=== PATIENT | male | born 1980 | race American Indian/Alaskan Native ===

== ENCOUNTER 2020-07-02 12:55 | Inpatient (IN) | payer OTHER, SELFPAY ==
[2020-07-02] MEDS ORDERED: IBUPROFEN 800 MG TAB PO ONE (16:06)
--- NOTE | 2020-07-02 16:06 | Event Note ---
ED Screening Note Date of service: 07/02/20 Time: 16:02 ED Screening Note: This is a 39-year-old male with no prior medical history presents the ED complaining right-sided chest pain Pain in lower back pain all on the right side. Patient states he has been getting over a cold but today he was coughing and was coughing up blood. Denies no recent sick contact This initial assessment/diagnostic orders/clinical plan/treatment(s) is/are subject to change based on patients health status, clinical progression and re- assessment by fellow clinical providers in the ED. Further treatment and workup at subsequent clinical providers discretion. Patient/guardian urged not to elope from the ED as their condition may be serious if not clinically assessed and managed. Initial orders include: Tylenol ordered for pain EKG, chest x-ray
--- NOTE | 2020-07-02 17:07 | XRay Report ---
CHEST 2 VIEWS INDICATION / CLINICAL INFORMATION: cp. COMPARISON: None available. FINDINGS: SUPPORT DEVICES: None. HEART / MEDIASTINUM: No significant abnormality. LUNGS / PLEURA: No significant pulmonary or pleural abnormality. .No pneumothorax. ADDITIONAL FINDINGS: No significant additional findings. IMPRESSION: 1. No acute findings. Signer Name: Harlan Freitas MD Signed: 07/02/2020 5:03 PM Workstation Name: [id number]
[2020-07-02] MEDS ORDERED: IBUPROFEN 800 MG TAB ONE (18:14)
[2020-07-02] MEDS ORDERED: HYDROcodone/ACETAMINOPHEN 10-325MG TAB PO ONE (19:16)
[2020-07-02] MEDS ORDERED: ONDANSETRON 4 MG ODT TAB PO ONE (19:50)
--- NOTE | 2020-07-02 19:50 | Emergency Department Report ---
ED Abdominal Pain HPI - General Chief Complaint: Chest Pain Stated Complaint: CHEST PAIN, SIDE PAIN Time Seen by Provider: 07/02/20 19:05 Source: patient Mode of arrival: Ambulatory Limitations: No Limitations - History of Present Illness Initial Comments: This is a 39-year-old male nontoxic, well nourished in appearance, no acute signs of distress presents to the ED with c/o of nausea with right upper abdominal pain several days. Stated has radiation to right lower chest area and right flank area. Patient denies any vomiting. Agrees to URI symptoms with cough. Patient describes abdominal pain as cramping and aching with level of 8/10 diffuse. Patient denies chest pain, short of breath, fever, hemoptysis, blood in stool, chills, headache, stiff neck, numbness or tingling. Patient denies any diarrhea or constipation. Denies any blood in stool. Patient denies any recent travels. Patient denies any allergies or significant PMH. MD Complaint: abdominal pain -: days(s) Location: RUQ Radiation: R flank, chest Migration to: no migration Severity: mild Severity scale (0 -10): 3 Quality: cramping, aching Consistency: constant Improves With: nothing Worsens With: nothing Associated Symptoms: nausea. denies: vomiting, diarrhea, fever, chills, constipation, dysuria, hematemesis, hematochezia, melena, hematuria, anorexia, syncope - Related Data Allergies Allergy/AdvReac Type Severity Reaction Status Date / Time No Known Allergies Allergy Unverified 07/02/20 14:06 ED Review of Systems ROS: Stated complaint: CHEST PAIN, SIDE PAIN Other details as noted in HPI Constitutional: denies: chills, fever Eyes: denies: eye pain, eye discharge, vision change ENT: congestion. denies: ear pain, throat pain Respiratory: cough. denies: shortness of breath, wheezing Cardiovascular: chest pain. denies: palpitations Endocrine: no symptoms reported Gastrointestinal: abdominal pain, nausea. denies: vomiting, diarrhea, constipation, hematemesis, melena, hematochezia Genitourinary: denies: urgency, dysuria Musculoskeletal: denies: back pain, joint swelling, arthralgia Skin: denies: rash, lesions Neurological: denies: headache, weakness, paresthesias Psychiatric: denies: anxiety, depression Hematological/Lymphatic: denies: easy bleeding, easy bruising ED Past Medical Hx - Past Medical History Previous Medical History?: No - Surgical History Past Surgical History?: No - Social History Smoking Status: Never Smoker Substance Use Type: None ED Physical Exam - General Limitations: No Limitations General appearance: alert, in no apparent distress - Head Head exam: Present: atraumatic, normocephalic - Eye Eye exam: Present: normal appearance - ENT ENT exam: Present: normal exam, normal orophraynx, mucous membranes moist - Neck Neck exam: Present: normal inspection, full ROM. Absent: tenderness, menin gismus, lymphadenopathy - Respiratory Respiratory exam: Present: normal lung sounds bilaterally. Absent: respiratory distress, wheezes, rales, rhonchi, stridor, chest wall tenderness, accessory muscle use, decreased breath sounds, prolonged expiratory - Cardiovascular Cardiovascular Exam: Present: regular rate, normal rhythm, normal heart sounds. Absent: irregular rhythm, systolic murmur, diastolic murmur, rubs, gallop - GI/Abdominal GI/Abdominal exam: Present: soft, tenderness (RUQ), normal bowel sounds. Absent: distended, guarding, rebound, rigid, diminished bowel sounds - Extremities Exam Extremities exam: Present: normal inspection, full ROM - Back Exam Back exam: Present: normal inspection, full ROM. Absent: tenderness, CVA tenderness (R), CVA tenderness (L), muscle spasm, paraspinal tenderness, vertebral tenderness, rash noted - Neurological Exam Neurological exam: Present: alert, oriented X3, normal gait - Psychiatric Psychiatric exam: Present: normal affect, normal mood - Skin Skin exam: Present: warm, dry, intact, normal color. Absent: rash ED Course Vital Signs 07/02/20 07/02/20 14:06 16:16 Temperature 99.8 F H 99 F Pulse Rate 112 H 99 H Respiratory 18 18 Rate Blood Pressure 167/97 167/94 O2 Sat by Pulse 98 100 Oximetry - Reevaluation(s) Reevaluation #1: 07/02/20 19:48 Patient is speaking in full sentences with no signs of distress noted. - Consultations Consultation #1: 07/02/20 22:33 Patient has been consulted with Dr. Keller about patient history, physical exam, and labs/CT results and agrees to the ED plan of care and admission. Consultation #2: 07/02/20 23:01 Patient has been consulted with Dr. So about patient history, physical exam, and labs/CT results and accepts patient to services. ED Medical Decision Making - Lab Data Result diagrams: 07/02/20 19:20 07/02/20 19:20 Lab Results 07/02/20 07/02/20 07/02/20 Range/Units 19:20 19:20 Unknown WBC 14.0 H (4.5-11.0) K/mm3 RBC 6.02 H (3.65-5.03) M/mm3 Hgb 16.4 H (11.8-15.2) gm/dl Hct 49.3 H (35.5-45.6) % MCV 82 L (84-94) fl MCH 27 L (28-32) pg MCHC 33 (32-34) % RDW 15.7 H (13.2-15.2) % Plt Count 213 (140-440) K/mm3 Lymph % (Auto) 12.2 L (13.4-35.0) % [place] % (Auto) 11.1 H (0.0-7.3) % Eos % (Auto) 0.2 (0.0-4.3) % Baso % (Auto) 0.4 (0.0-1.8) % Lymph # 1.7 (1.2-5.4) K/mm3 [place] # 1.5 H (0.0-0.8) K/mm3 Eos # 0.0 (0.0-0.4) K/mm3 Baso # 0.1 (0.0-0.1) K/mm3 Seg Neutrophils % 76.1 H (40.0-70.0) % Seg Neutrophils # 10.6 H (1.8-7.7) K/mm3 Sodium 137 (137-145) mmol/L Potassium 3.6 (3.6-5.0) mmol/L Chloride 99.6 (98-107) mmol/L Carbon Dioxide 22 (22-30) mmol/L Anion Gap 19 mmol/L BUN 9 (9-20) mg/dL Creatinine 1.0 (0.8-1.3) mg/dL Estimated GFR > 60 ml/min BUN/Creatinine Ratio 9 % Glucose 98 (75-100) mg/dL Calcium 9.6 (8.4-10.2) mg/dL Total Bilirubin 1.00 (0.1-1.2) mg/dL AST 12 (5-40) units/L ALT 10 (7-56) units/L Alkaline Phosphatase 69 (35-129) units/L Troponin T < 0.010 (0.00-0.029) ng/mL Total Protein 7.4 (6.3-8.2) g/dL Albumin 3.6 L (3.9-5) g/dL Albumin/Globulin Ratio 0.9 % Lipase 15 (13-60) units/L Urine Color Yellow (Yellow) Urine Turbidity Clear (Clear) Urine pH 5.0 (5.0-7.0) Ur Specific [place] 1.017 (1.003-1.030) Urine Protein 30 mg/dl (Negative) mg/dL Urine Glucose (UA) Neg (Negative) mg/dL Urine Ketones 20 (Negative) mg/dL Urine Blood Neg (Negative) Urine Nitrite Neg (Negative) Urine Bilirubin Neg (Negative) Urine Urobilinogen 4.0 (<2.0) mg/dL Ur Leukocyte Esterase Neg (Negative) Urine WBC (Auto) 5.0 (0.0-6.0) /HPF Urine RBC (Auto) 4.0 (0.0-6.0) /HPF U Epithel Cells (Auto) 1.0 (0-13.0) /HPF Urine Bacteria (Auto) 1+ (Negative) /HPF Urine Mucus 3+ /HPF - EKG Data 07/02/20 20:09 Normal sinus rhythm at [address] or T wave abnormalities. Reviewed and signed by . - Radiology Data Referring Physician: AISLINN NOVAK Patient Name: RODY LEAL Date of : 1980 Sex: Male Report Date: 2020-07-02 Report Status: Finalized [facility] [address] [place] [address] Cat Scan Report Signed Patient: RODY LEAL MR#: [id number] : 1980 Acct:[id number] Age/Sex: 39 / M ADM Date: 07/02/20 Loc: ED Attending Dr: Ordering Physician: AISLINN NOVAK NP Date of Service: 08/19/20 Procedure(s): CT abdomen pelvis w con Accession Number(s): [id number] cc: AISLINN NOVAK NP CT ABDOMEN AND PELVIS WITH CONTRAST HISTORY: abd pain. Acute generalized abdominal pain COMPARISON: None. TECHNIQUE: CT images of the abdomen and pelvis were obtained following administration of intravenous contrast. All CT scans at this location are performed using CT dose reduction for ALARA by means of automated exposure control. CONTRAST: 100 ml of intravenous contrast administered. FINDIN GS: Lungs/bones: Trace right-sided effusion with streaky right basilar airspace disease. Incidentally, there is a subsegmental thromboembolism in the right lower lobe as seen on image 10 of series #2. Left lung bases clear. No acute osseous abnormality identified. Abdomen/pelvis: The liver, gallbladder, spleen, pancreas, adrenals, kidneys, and proximal GI tract appear unremarkable. Urinary bladder and prostate are unremarkable. No pelvic free fluid or acute colonic abnormality identified. IMPRESSION: 1. Subsegmental PTE in the right lower lobe with underlying streaky airspace disease and trace right-sided effusion. 2. No acute abnormality within the abdomen. COMMUNICATION: Time of Communication (DEATH CLAIM EXAMINER/CDT): 2122 Licensed Practitioner Receiving Report: Dr. Novak Signer Name: Marty Bronson MD Signed: 07/02/2020 10:24 PM Workstation Name: [id number] Transcribed By: RAMAN Dictated By: Marty Bronson MD Electronically Authenticated By: Marty Bronson MD Signed Date/Time: 07/02/202223 DD/ 19 TD/TT: - Medical Decision Making 39-year-old male that presents with PE. Patient is stable and was examined by me. Patient consulted with Dr. Keller and admitted with Dr. So. PE protocol and heparin drip administered. At time of admission, the patient does not seem toxic or ill in appearance. No acute signs of distress noted. Patient agrees to admission treatment plan of care. No further questions noted by the patient. Critical care attestation.: If time is entered above; I have spent that time in minutes in the direct care of this critically ill patient, excluding procedure time. ED Disposition Clinical Impression: Pulmonary embolism Qualifiers: Pulmonary embolism type: unspecified Chronicity: acute Acute cor pulmonale presence: unspecified Qualified Code(s): I26.99 - Other pulmonary embolism without acute cor pulmonale Disposition: DC-09 OP ADMIT IP TO THIS HOSP Is pt being admited?: Yes Condition: Stable Referrals: PRIMARY CARE, [Primary Care Provider] - 3-5 Days
[2020-07-02 19:59] LABS: Basophils # (Auto) 0.1 K/mm3 (0.0-0.1); Basophils % (Auto) 0.4 % (0.0-1.8); Eosinophils % (Auto) 0.2 % (0.0-4.3); Hematocrit 49.3 % (35.5-45.6); Hemoglobin 16.4 gm/dl (11.8-15.2); Lymphocytes # (Auto) 1.7 K/mm3 (1.2-5.4); Lymphocytes % (Auto) 12.2 % (13.4-35.0); Mean Corpuscular HGB Conc 33 % (32-34); Mean Corpuscular Volume 82 fl (84-94); Monocytes # (Auto) 1.5 K/mm3 (0.0-0.8); Monocytes % (Auto) 11.1 % (0.0-7.3); Platelet Count 213 K/mm3 (140-440); Red Blood Count 6.02 M/mm3 (3.65-5.03); Red Cell Distribution Width 15.7 % (13.2-15.2)
[2020-07-02 20:14] LABS: Alanine Aminotransferase 10 units/L (7-56); Albumin 3.6 g/dL (3.9-5); BUN/Creatinine Ratio 9; Blood Urea Nitrogen 9 mg/dL (9-20); Calcium 9.6 mg/dL (8.4-10.2); Hemolysis Index 2
--- NOTE | 2020-07-02 21:08 | Ultrasound Report ---
ULTRASOUND ABDOMEN, COMPLETE INDICATION: abd pain. COMPARISON: No relevant prior imaging study available. FINDINGS: Pancreas: No significant abnormality. Abdominal Aorta: No significant abnormality. IVC: No significant abnormality. Liver: The liver measures 14.8 cm in length. No significant abnormality. Normal hepatopedal blood fl ow in the main portal vein. Gallbladder: No significant abnormality. Bile ducts: No significant abnormality. Common bile duct measures 2 mm. Kidneys: Right: 11.2 cm in length. No significant abnormality. Left: 11 cm in length. No signific ant abnormality. Spleen: No significant abnormality. Free fluid: None. Additional Findings: None. IMPRESSION: 1. No sonographic abnormality of the abdomen. Signer Name: Marty Bronson MD Signed: 07/02/2020 9:04 PM Workstation Name: [id number]
[2020-07-02] MEDS ORDERED: SODIUM CHLORIDE 0.9% 1000 ML 1,000 ML IV ONE (21:13)
[2020-07-02 21:24] LABS: Bacteria,Urine 1+ /HPF (Negative); Bilirubin,Urine NEG (Negative); Blood,Urine NEG (Negative); Color,Urine Yellow (Yellow); Mucus,Urine 3+ /HPF
[2020-07-02] MEDS ORDERED: HEPARIN 10,000 UNITS/10 ML VIAL IV ONE (22:27)
--- NOTE | 2020-07-02 22:29 | Cat Scan Report ---
CT ABDOMEN AND PELVIS WITH CONTRAST HISTORY: abd pain. Acute generalized abdominal pain COMPARISON: None. TECHNIQUE: CT images of the abdomen and pelvis were obtained following administration of intravenous contrast. All CT scans at this location are performed using CT dose reduction for ALARA by means of automated exposure control. CONTRAST: 100 ml of intravenous contrast administered. FINDINGS: Lungs/bones: Trace right-sided effusion with streaky right basilar airspace disease. Incidentally, t here is a subsegmental thromboembolism in the right lower lobe as seen on image 10 of series #2. Left lung bases clear. No acute osseous abnormality identified. Abdomen/pelvis: The liver, gallbladder, spleen, pancreas, adrenals, kidneys, and proximal GI tract a ppear unremarkable. Urinary bladder and prostate are unremarkable. No pelvic free fluid or acute colonic abnormality iden tified. IMPRESSION: 1. Subsegmental PTE in the right lower lobe with underlying streaky airspace disease and trace right- sided effusion. 2. No acute abnormality within the abdomen. COMMUNICATION: Time of Communication (RADIO BOARD OPERATOR/CDT): 2122 Licensed Practitioner Receiving Report: Dr. Gonzales Signer Name: Marty Bronson MD Signed: 07/02/2020 10:24 PM Workstation Name: [id number]
[2020-07-02 23:54] LABS: Hematocrit 48.7 % (35.5-45.6); Hemoglobin 15.9 gm/dl (11.8-15.2)
[2020-07-03] MEDS ORDERED: MORPHINE 2 MG/1 ML INJ IV PRN (00:03)
[2020-07-03] MEDS ORDERED: ACETAMINOPHEN 325 MG TAB PO PRN (00:03)
[2020-07-03] MEDS ORDERED: MAGNESIUM HYDROXIDE (MOM) ORAL LIQD UDC PO PRN (00:03)
[2020-07-03] MEDS ORDERED: ONDANSETRON 4 MG/2 ML INJ IV PRN (00:03)
[2020-07-03 00:05] LABS: INR 1.05 (0.87-1.13)
[2020-07-03 00:10] LABS: Partial Thromboplastin Time 27.7 Sec. (24.2-36.6)
[2020-07-03] MEDS: HEPARIN/ 0.45% NACL DRIP 25,000 UNIT/500 ML BAG IV SCH ×2 (00:10→21:28)
--- NOTE | 2020-07-03 00:11 | History and Physical Report ---
History of Present Illness Date of examination: 07/02/20 Date of admission: 07/02/2020 Chief complaint: Right sided abdominal pain Right flank pain History of present illness: 89-year-old male no significant past medical history presenting to the emergency room today complaining of nausea and abdominal pain for the past few days. Abdominal pain is said to be right in the right upper quadrant and radiating towards the back. Abdominal pain is said to be crampy and was about 8/10 in severity. Patient denies any chest pain or shortness of breath, no fever or ch ills, no headache or dizziness. He denies any bloody stool, no hematuria or dysuria. He has had some cough which has been productive of some blood-tinged sputum. Patient admits that he was in [place] a few weeks ago but denies having any sick contacts or contact with anyone with COVID-19. Work-up today in the emergency room reveals elevated white count of 14, CT of the abdomen and pelvis reveals a right-sided pulmonary embolism as some patchy right lower lobe airspace disease. Patient has been started on heparin drip and empiric IV antibiotics for possible pneumonia. Past History Past Medical History: No medical history Past Surgical History: No surgical history Social history: no significant social history Family history: hypertension (Mother had hypertension) Medications and Allergies Allergies Allergy/AdvReac Type Severity Reaction Status Date / Time No Known Allergies Allergy Unverified 07/02/20 14:06 Home Medications Medication Instructions Recorded Confirmed Last Taken Type No Known Home Medications [No 07/03/20 07/03/20 Unknown History Reported Home Medications] Active Meds: Active Medications Acetaminophen (Tylenol) 650 mg PO Q4H PRN PRN Reason: Pain MILD(1-3)/Fever >100.5/DAVID Heparin Sodium/Sodium Chloride (Heparin/ 0.45% Nacl-25,000 Unit/500 Ml) 25,000 unit in 500 mls @ 26 mls/hr IV TITR DEANDRE; Protocol Sodium Chloride (Nacl 0.9% 1000 Ml) 1,000 mls @ 125 mls/hr IV DIRECT DEANDRE Ceftriaxone Sodium (Rocephin/Ns 2 Gm/100 Ml) 2 gm in 100 mls @ 200 mls/hr IV Q24HR DEANDRE; Protocol Azithromycin 500 mg/ Sodium (Chloride) 250 mls @ 250 mls/hr IV Q24HR DEANDRE; Protocol Magnesium Hydroxide (Milk Of Magnesia) 30 ml PO Q4H PRN PRN Reason: Constipation Morphine Sulfate (Morphine) 2 mg IV Q4H PRN PRN Reason: Pain, Moderate (4-6) Ondansetron HCl (Zofran) 4 mg IV Q8H PRN PRN Reason: Nausea And Vomiting Sodium Chloride (Sodium Chloride Flush Syringe 10 Ml) 10 ml IV BID DEANDRE Sodium Chloride (Sodium Chloride Flush Syringe 10 Ml) 10 ml IV PRN PRN PRN Reason: LINE FLUSH Review of Systems Constitutional: no fever, no chills Ears, nose, mouth and throat: no nasal congestion, no sore throat Cardiovascular: no chest pain, no palpitations Respiratory: cough, hemoptysis Gastrointestinal: no abdominal pain, no nausea, no vomiting, no diarrhea Genitourinary Male: no dysuria, no hematuria, no nocturia Musculoskeletal: no neck pain, no low back pain Integumentary: no rash, no pruritis Neurological: no headaches, no confusion Psychiatric: no anxiety, no depression Exam - Constitutional Vitals: Temp Pulse Resp BP Pulse Ox 99 F 99 H 18 167/94 100 07/02/20 16:16 07/02/20 16:16 07/02/20 16:16 07/02/20 16:16 07/02/20 16:16 General appearance: Present: no acute distress, well-nourished - EENT Eyes: Present: PERRL, EOM intact. Absent: scleral icterus ENT: hearing intact, clear oral mucosa, dentition normal - Neck Neck: Present: supple, normal ROM - Respiratory Respiratory effort: normal Respiratory: bilateral: CTA - Cardiovascular Rhythm: regular Heart Sounds: Present: S1 & S2. Absent: gallop, systolic murmur, diastolic murmur, rub - Extremities Extremities: no ischemia, pulses intact, pulses symmetrical, No edema, Full ROM Peripheral Pulses: within normal limits - Abdominal General gastrointestinal: Present: soft, non-tender, non-distended, normal bowel sounds. Absent: mass - Integumentary Integumentary: Present: clear, warm, dry. Absent: rash - Musculoskeletal Musculoskeletal: strength equal bilaterally - Psychiatric Psychiatric: appropriate mood/affect, intact judgment & insight, memory intact, cooperative - Neurologic Neurologic: CNII-XII intact, no focal deficits, moves all extremities HEART Score - HEART Score Troponin: Troponin T < 0.010 ng/mL (0.00-0.029) 07/02/20 19:20 Results - Labs CBC & Chem 7: 07/02/20 23:22 07/02/20 19:20 Labs: Abnormal lab results 07/02/20 07/02/20 07/02/20 Range/Units 19:20 19:20 23:22 WBC 14.0 H (4.5-11.0) K/mm3 RBC 6.02 H (3.65-5.03) M/mm3 Hgb 16.4 H 15.9 H (11.8-15.2) gm/dl Hct 49.3 H 48.7 H (35.5-45.6) % MCV 82 L (84-94) fl MCH 27 L (28-32) pg RDW 15.7 H (13.2-15.2) % Lymph % (Auto) 12.2 L (13.4-35.0) % [place] % (Auto) 11.1 H (0.0-7.3) % [place] # 1.5 H (0.0-0.8) K/mm3 Seg Neutrophils % 76.1 H (40.0-70.0) % Seg Neutrophils # 10.6 H (1.8-7.7) K/mm3 Albumin 3.6 L (3.9-5) g/dL Assessment and Plan - Patient Problems (1) Pulmonary embolism Current Visit: Yes Status: Acute Qualifiers: Pulmonary embolism type: unspecified Chronicity: acute Acute cor pulmonale presence: unspecified Qualified Code(s): I26.99 - Other pulmonary embolism without acute cor pulmonale Plan to address problem: Patient has been started on heparin drip. (2) Full code status Current Visit: Yes Status: Acute
[2020-07-03] MEDS: SODIUM CHLORIDE 0.9% 1000 ML 1,000 ML IV SCH ×3 (03:55→21:30)
--- NOTE | 2020-07-03 08:30 | Progress Note ---
Assessment and Plan Assessment and plan: Pulmonary embolism Cont. on heparin drip. We will transition to eliquis. Check ECHO. Pulmonary consulted. Abdominal pain. Resolving. CT A/P and Abd US negative. Full code status History Interval history: No new issues since admission Hospitalist Physical - Constitutional Vitals: Temp Pulse Resp BP Pulse Ox 97.6 F 91 H 18 146/94 95 07/03/20 05:57 07/03/20 05:57 07/03/20 05:57 07/03/20 05:57 07/03/20 05:57 General appearance: Present: no acute distress, well-nourished HEART Score - HEART Score Troponin: Troponin T < 0.010 ng/mL (0.00-0.029) 07/03/20 02:06 Results - Labs CBC & Chem 7: 07/04/20 05:40 07/04/20 05:40 Labs: Laboratory Last Values WBC 14.0 K/mm3 (4.5-11.0) H 07/02/20 19:20 RBC 6.02 M/mm3 (3.65-5.03) H 07/02/20 19:20 Hgb 15.9 gm/dl (11.8-15.2) H 07/02/20 23:22 Hct 48.7 % (35.5-45.6) H 07/02/20 23:22 MCV 82 fl (84-94) L 07/02/20 19:20 MCH 27 pg (28-32) L 07/02/20 19:20 MCHC 33 % (32-34) 07/02/20 19:20 RDW 15.7 % (13.2-15.2) H 07/02/20 19:20 Plt Count 200 K/mm3 (140-440) 07/02/20 23:22 Lymph % (Auto) 12.2 % (13.4-35.0) L 07/02/20 19:20 [place] % (Auto) 11.1 % (0.0-7.3) H 07/02/20 19:20 Eos % (Auto) 0.2 % (0.0-4.3) 07/02/20 19:20 Baso % (Auto) 0.4 % (0.0-1.8) 07/02/20 19:20 Lymph # 1.7 K/mm3 (1.2-5.4) 07/02/20 19:20 [place] # 1.5 K/mm3 (0.0-0.8) H 07/02/20 19:20 Eos # 0.0 K/mm3 (0.0-0.4) 07/02/20 19:20 Baso # 0.1 K/mm3 (0.0-0.1) 07/02/20 19:20 Seg Neutrophils % 76.1 % (40.0-70.0) H 07/02/20 19:20 Seg Neutrophils # 10.6 K/mm3 (1.8-7.7) H 07/02/20 19:20 PT 13.8 Sec. (12.2-14.9) 07/02/20 23:22 INR 1.05 (0.87-1.13) 07/02/20 23:22 APTT 27.7 Sec. (24.2-36.6) 07/02/20 23:22 Heparin Anti-Xa Level 0.41 U.I./ml (0.3-0.7) 07/03/20 05:50 Sodium 137 mmol/L (137-145) 07/02/20 19:20 Potassium 3.6 mmol/L (3.6-5.0) 07/02/20 19:20 Chloride 99.6 mmol/L (98-107) 07/02/20 19:20 Carbon Dioxide 22 mmol/L (22-30) 07/02/20 19:20 Anion Gap 19 mmol/L 07/02/20 19:20 BUN 9 mg/dL (9-20) 07/02/20 19:20 Creatinine 1.0 mg/dL (0.8-1.3) 07/02/20 19:20 Estimated GFR > 60 ml/min 07/02/20 19:20 BUN/Creatinine Ratio 9 % 07/02/20 19:20 Glucose 98 mg/dL (75-100) 07/02/20 19:20 Calcium 9.6 mg/dL (8.4-10.2) 07/02/20 19:20 Total Bilirubin 1.00 mg/dL (0.1-1.2) 07/02/20 19:20 AST 12 units/L (5-40) 08/19/20 19:20 ALT 10 units/L (7-56) 07/02/20 19:20 Alkaline Phosphatase 69 units/L (35-129) 07/02/20 19:20 Troponin T < 0.010 ng/mL (0.00-0.029) 07/03/20 02:06 Total Protein 7.4 g/dL (6.3-8.2) 07/02/20 19:20 Albumin 3.6 g/dL (3.9-5) L 07/02/20 19:20 Albumin/Globulin Ratio 0.9 % 07/02/20 19:20 Lipase 15 units/L (13-60) 07/02/20 19:20 Urine Color Yellow (Yellow) 07/02/20 Unknown Urine Turbidity Clear (Clear) 07/02/20 Unknown Urine pH 5.0 (5.0-7.0) 07/02/20 Unknown Ur Specific [place] 1.017 (1.003-1.030) 07/02/20 Unknown Urine Protein 30 mg/dl mg/dL (Negative) 07/02/20 Unknown Urine Glucose (UA) Neg mg/dL (Negative) 07/02/20 Unknown Urine Ketones 20 mg/dL (Negative) 07/02/20 Unknown Urine Blood Neg (Negative) 07/02/20 Unknown Urine Nitrite Neg (Negative) 07/02/20 Unknown Urine Bilirubin Neg (Negative) 07/02/20 Unknown Urine Urobilinogen 4.0 mg/dL (<2.0) 07/02/20 Unknown Ur Leukocyte Esterase Neg (Negative) 07/02/20 Unknown Urine WBC (Auto) 5.0 /HPF (0.0-6.0) 07/02/20 Unknown Urine RBC (Auto) 4.0 /HPF (0.0-6.0) 07/02/20 Unknown U Epithel Cells (Auto) 1.0 /HPF (0-13.0) 07/02/20 Unknown Urine Bacteria (Auto) 1+ /HPF (Negative) 07/02/20 Unknown Urine Mucus 3+ /HPF 07/02/20 Unknown Cates/IV: Voiding Method Urinal IV Catheter Type [Left Forearm INT / Saline Lock ] IV Catheter Type [Left Hand] INT / Saline Lock Active Medications - Current Medications Current Medications: Generic Name Dose Route Start Last Admin Trade Name Freq PRN Reason Stop Dose Admin Acetaminophen 650 mg 07/03/20 00:03 Tylenol PO Q4H PRN Pain MILD(1-3)/Fever >100.5/DAVID Azithromycin 500 mg 07/04/20 10:00 Zithromax PO 07/07/20 10:01 QDAY DEANDRE Heparin Sodium/Sodium Chloride 25,000 unit in 500 mls @ 26 mls/hr 07/02/20 23:00 07/03/20 07:16 Heparin/ 0.45% Nacl-25,000 Unit/500 Ml IV 1,300 units/hr TITR DEANDRE 26 mls/hr Titration Protocol 1,300 UNITS/HR Sodium Chloride 1,000 mls @ 125 mls/hr 07/03/20 00:15 07/03/20 03:55 Nacl 0.9% 1000 Ml IV 125 mls/hr DIRECT DEANDRE Administration Ceftriaxone Sodium 2 gm in 100 mls @ 200 mls/hr 07/03/20 10:00 Rocephin/Ns 2 Gm/100 Ml IV Q24HR DEANDRE Protocol Azithromycin 500 mg/ Sodium 250 mls @ 250 mls/hr 07/03/20 10:00 Chloride IV 07/03/20 18:00 Q24HR [facility] Protocol Magnesium Hydroxide 30 ml 07/03/20 00:03 Milk Of Magnesia PO Q4H PRN Constipation Morphine Sulfate 2 mg 07/03/20 00:03 Morphine IV Q4H PRN Pain, Moderate (4-6) Ondansetron HCl 4 mg 07/03/20 00:03 Zofran IV Q8H PRN Nausea And Vomiting Sodium Chloride 10 ml 07/03/20 10:00 Sodium Chloride Flush Syringe 10 Ml IV BID DEANDRE Sodium Chloride 10 ml 07/03/20 00:03 Sodium Chloride Flush Syringe 10 Ml IV PRN PRN LINE FLUSH
[2020-07-03] MEDS ORDERED: cefTRIAXone/NS 2 GM/100 ML 2 GM/100 ML BAG IV SCH (10:00)
[2020-07-03] MEDS ORDERED: AZITHROMYCIN 500 MG in SODIUM CHLORIDE 0.9% 250ML 250 ML IV SCH (10:00)
--- NOTE | 2020-07-03 10:59 | Event Note ---
Date: 07/03/20 Patient presented to ED for abdominal pain and found to have a subsegmental PE in the right lower lobe. Although listed as abdominal pain, per chart, patient was having right sided chest pain and had some hemoptysis. He recently traveled to [place] but denied any contacts with COVID positive individuals. Would consider checking lower extremity dopplers but if this is unprovked PE, would need anticoagulation indefinitely. Also would need hypercoag work up but this could be done as an outpatient. Likely PE was incidental finding and I doubt the cause of abdominal pain. Agree with heparin. Given funding, would suggest coumadin unless the patient is able to pay the out of pocket pricing for something like eliquis or one of the other NOAC's.
--- NOTE | 2020-07-03 13:47 | Consultation ---
History of Present Illness - Reason for Consult Consult date: 07/03/20 ?COVID Requesting physician: JOSE ENRIQUE GURROLA - History of Present Illness The patient is a 39-year-old male who came to the emergency room with right- sided chest pain. He had recently traveled to [place]. He denied any shortness of breath but with cough and some blood tinged sputum. No fever. Chest x-ray showed no pneumonia. CT of the abdomen and pelvis revealed right-sided pulmona ry embolism. He was started on empiric antibiotics. Also on anticoagulation. Review of Systems: reviewed in the chart, unable to obtain directly due to PPE shortage and preserv ation Past History Past Medical History: No medical history Past Surgical History: No surgical history Social history: no significant social history Family history: hypertension (Mother had hypertension) Medications and Allergies Allergies Allergy/AdvReac Type Severity Reaction Status Date / Time No Known Allergies Allergy Unverified 07/02/20 14:06 Home Medications Medication Instructions Recorded Confirmed Last Taken Type No Known Home Medications [No 07/03/20 07/03/20 Unknown History Reported Home Medications] Active Meds: Active Medications Acetaminophen (Tylenol) 650 mg PO Q4H PRN PRN Reason: Pain MILD(1-3)/Fever >100.5/DAVID Azithromycin (Zithromax) 500 mg PO QDAY DEANDRE Stop: 07/07/20 10:01 Heparin Sodium/Sodium Chloride (Heparin/ 0.45% Nacl-25,000 Unit/500 Ml) 25,000 unit in 500 mls @ 26 mls/hr IV TITR DEANDRE; Protocol Last Titration: 07/03/20 07:16 Dose: 1,300 units/hr, 26 mls/hr Documented by: Sodium Chloride (Nacl 0.9% 1000 Ml) 1,000 mls @ 125 mls/hr IV DIRECT DEANDRE Last Admin: 07/03/20 11:25 Dose: 125 mls/hr Documented by: Ceftriaxone Sodium (Rocephin/Ns 2 Gm/100 Ml) 2 gm in 100 mls @ 200 mls/hr IV Q24HR DEANDRE; Protocol Last Admin: 07/03/20 10:52 Dose: 200 mls/hr Documented by: Azithromycin 500 mg/ Sodium (Chloride) 250 mls @ 250 mls/hr IV Q24HR DEANDRE; Protocol Stop: 07/03/20 18:00 Last Admin: 07/03/20 11:25 Dose: 250 mls/hr Documented by: Magnesium Hydroxide (Milk Of Magnesia) 30 ml PO Q4H PRN PRN Reason: Constipation Morphine Sulfate (Morphine) 2 mg IV Q4H PRN PRN Reason: Pain, Moderate (4-6) Ondansetron HCl (Zofran) 4 mg IV Q8H PRN PRN Reason: Nausea And Vomiting Sodium Chloride (Sodium Chloride Flush Syringe 10 Ml) 10 ml IV BID DEANDRE Last Admin: 07/03/20 10:52 Dose: 10 ml Documented by: Sodium Chloride (Sodium Chloride Flush Syringe 10 Ml) 10 ml IV PRN PRN PRN Reason: LINE FLUSH Physical Examination - Physical Exam Narrative exam: Physical Exam (reviewed in chart due to PPE conservation) Constitutional: limited due to PPE conservation strategy Head, Ears, Nose: limited due to PPE conservation strategy Eyes: limited due to PPE conservation strategy Neck: limited due to PPE conservation strategy Oral: limited due to PPE conservation strategy Cardiovascular: limited due to PPE conservation strategy Respiratory: limited due to PPE conservation strategy GI: limited due to PPE conservation strategy Musculoskeletal: limited due to PPE conservation strategy Skin: limited due to PPE conservation strategy Hem/Lymphatic: limited due to PPE conservation strategy Psych: limited due to PPE conservation strategy Neurological: limited due to PPE conservation strategy - Constitutional Vitals: Vital Signs Temp Pulse Resp BP Pulse Ox 99.1 F 92 H 22 150/97 95 07/03/20 12:15 07/03/20 12:15 07/03/20 12:15 07/03/20 12:15 07/03/20 12:15 Temperature -Last 24 Hours Temperature 99.1 F Temperature 97.6 F Temperature 98.1 F Temperature 99 F Temperature 99.8 F Results - Labs CBC & Chem 7: 07/02/20 23:22 07/02/20 19:20 Labs: Abnormal lab results 07/02/20 07/02/20 07/02/20 Range/Units 19:20 19:20 23:22 WBC 14.0 H (4.5-11.0) K/mm3 RBC 6.02 H (3.65-5.03) M/mm3 Hgb 16.4 H 15.9 H (11.8-15.2) gm/dl Hct 49.3 H 48.7 H (35.5-45.6) % MCV 82 L (84-94) fl MCH 27 L (28-32) pg RDW 15.7 H (13.2-15.2) % Lymph % (Auto) 12.2 L (13.4-35.0) % [place] % (Auto) 11.1 H (0.0-7.3) % [place] # 1.5 H (0.0-0.8) K/mm3 Seg Neutrophils % 76.1 H (40.0-70.0) % Seg Neutrophils # 10.6 H (1.8-7.7) K/mm3 Albumin 3.6 L (3.9-5) g/dL - Imaging and Cardiology Chest x-ray: report reviewed, image reviewed (Chest x-ray without any acute findings, no evidence of pneumonia) CT scan - abdomen: report reviewed, image reviewed (CT abdomen showed subsegmental thromboembolism in right lower lobe) US - abdomen: report reviewed, image reviewed (Abdominal ultrasound showed no acute abnormality) Assessment and Plan A/P: 39-year-old male who came to the emergency room with right-sided chest pain. He had recently traveled to [place]: #Acute pulmonary embolism: provoked from recent travel v/s COVID related. On room air. On anticoagulation. #Leukocytosis: likely reactive to above. Chest x-ray without any acute findings, no evidence of pneumonia Recs: Antibiotics discontinued Follow-up COVID-19 PCR Ricardo Dalton MD, FACP [facility] ([facility] C: [phone] O: [phone] F: [phone]
[2020-07-04] MEDS: SODIUM CHLORIDE 0.9% 1000 ML 1,000 ML IV SCH (05:37)
[2020-07-04 06:16] LABS: Basophils # (Auto) 0.1 K/mm3 (0.0-0.1); Basophils % (Auto) 1.1 % (0.0-1.8); Eosinophils # (Auto) 0.1 K/mm3 (0.0-0.4); Eosinophils % (Auto) 0.9 % (0.0-4.3); Hematocrit 44.4 % (35.5-45.6); Hemoglobin 14.7 gm/dl (11.8-15.2); Lymphocytes # (Auto) 1.8 K/mm3 (1.2-5.4); Lymphocytes % (Auto) 20.3 % (13.4-35.0); Mean Corpuscular HGB Conc 33 % (32-34); Mean Corpuscular Volume 83 fl (84-94); Monocytes # (Auto) 0.9 K/mm3 (0.0-0.8); Monocytes % (Auto) 9.9 % (0.0-7.3); Platelet Count 232 K/mm3 (140-440); Red Blood Count 5.35 M/mm3 (3.65-5.03); Red Cell Distribution Width 15.4 % (13.2-15.2)
[2020-07-04 06:32] LABS: BUN/Creatinine Ratio 7; Blood Urea Nitrogen 6 mg/dL (9-20); Calcium 8.8 mg/dL (8.4-10.2); Hemolysis Index 23
--- NOTE | 2020-07-04 07:53 | Consultation ---
History of Present Illness Consult date: 07/04/20 Requesting physician: PIO MONTGOMERY Reason for consult: pulmonary embolism History of present illness: 39 y/o male, presented to ED with coughing up blood and abdominal pain. CT of abdomen pelvis done and revealed subsegmental PE. Patient had had recent travel to [place]. No other risk factors for clots. Past History Past Medical History: No medical history Past Surgical History: No surgical history Social history: no significant social history Family history: hypertension (Mother had hypertension) Medications and Allergies Allergies Allergy/AdvReac Type Severity Reaction Status Date / Time No Known Allergies Allergy Unverified 07/02/20 14:06 Home Medications Medication Instructions Recorded Confirmed Last Taken Type No Known Home Medications [No 07/03/20 07/03/20 Unknown History Reported Home Medications] Active Meds: Active Medications Acetaminophen (Tylenol) 650 mg PO Q4H PRN PRN Reason: Pain MILD(1-3)/Fever >100.5/DAVID Heparin Sodium/Sodium Chloride (Heparin/ 0.45% Nacl-25,000 Unit/500 Ml) 25,000 unit in 500 mls @ 26 mls/hr IV TITR DEANDRE; Protocol Last Titration: 07/04/20 07:27 Dose: 1,400 units/hr, 28 mls/hr Documented by: Magnesium Hydroxide (Milk Of Magnesia) 30 ml PO Q4H PRN PRN Reason: Constipation Morphine Sulfate (Morphine) 2 mg IV Q4H PRN PRN Reason: Pain, Moderate (4-6) Ondansetron HCl (Zofran) 4 mg IV Q8H PRN PRN Reason: Nausea And Vomiting Sodium Chloride (Sodium Chloride Flush Syringe 10 Ml) 10 ml IV BID [facility] Last Admin: 07/03/20 21:33 Dose: 10 ml Documented by: Sodium Chloride (Sodium Chloride Flush Syringe 10 Ml) 10 ml IV PRN PRN PRN Reason: LINE FLUSH Review of Systems All systems: negative Physical Examination Vital signs: Vital Signs Temp Pulse Resp BP Pulse Ox 99.8 F H 112 H 18 167/97 98 07/02/20 14:06 07/02/20 14:06 07/02/20 14:06 07/02/20 14:06 07/02/20 14:06 Not examined in person as patient is PUI, and to preserve PPE during the COVID 19 pandemic Results - Laboratory Findings CBC and BMP: 07/04/20 05:40 07/04/20 05:40 PT/INR, D-dimer PT 13.8 Sec. (12.2-14.9) 07/02/20 23:22 INR 1.05 (0.87-1.13) 07/02/20 23:22 Abnormal lab findings: Abnormal Labs 07/02/20 07/02/20 07/02/20 19:20 19:20 23:22 WBC 14.0 H RBC 6.02 H Hgb 16.4 H 15.9 H Hct 49.3 H 48.7 H MCV 82 L MCH 27 L RDW 15.7 H Lymph % (Auto) 12.2 L [place] % (Auto) 11.1 H [place] # 1.5 H Seg Neutrophils % 76.1 H Seg Neutrophils # 10.6 H Heparin Anti-Xa Level Potassium BUN C-Reactive Protein Albumin 3.6 L 07/03/20 07/04/20 07/04/20 14:44 05:40 05:40 WBC RBC 5.35 H Hgb Hct MCV 83 L MCH 27 L RDW 15.4 H Lymph % (Auto) [place] % (Auto) 9.9 H [place] # 0.9 H Seg Neutrophils % Seg Neutrophils # Heparin Anti-Xa Level Potassium 3.4 L BUN 6 L C-Reactive Protein 9.60 H Albumin 07/04/20 06:00 WBC RBC Hgb Hct MCV MCH RDW Lymph % (Auto) [place] % (Auto) [place] # Seg Neutrophils % Seg Neutrophils # Heparin Anti-Xa Level 0.22 L Potassium BUN C-Reactive Protein Albumin - Diagnostic Findings Additional studies: reviewed CT of abdomen pelvis Assessment and Plan 39 y/o male with PE, in unprovoked setting. 1. Suggest LE dopplers 2. Patient has no funding, at least based on documentation, suggest maybe warfarin therapy unless patient can afford other NOAC's. 3. Hypercoag work up, but this can be done as an outpatient 4. Agree with ID in stopping Abx.
[2020-07-04] MEDS ORDERED: AZITHROMYCIN 250 MG TAB PO SCH (10:00)
[2020-07-04] MEDS ORDERED: POTASSIUM CHLORIDE ER 20 MEQ TAB PO NR (10:30)
--- NOTE | 2020-07-04 10:38 | Progress Note ---
Assessment and Plan Assessment and Plan Assessment and plan: Pulmonary embolism ? cause-Covid related/recent travel to [place] Covid test done-awaiting result. Cont. on heparin drip. We will transition to eliquis before d/c Pulmonary consulted. Oxygen supplement PRN Abdominal pain. Resolving. CT A/P and Abd US negative. Prrophalasis- Heparin gtt - Patient Problems (1) Hypokalemia Current Visit: Yes Status: Acute Plan to address problem: Replace potassium Am lab, bmp and mag level Replace if needed Subjective Date of service: 07/04/20 Interval history: Patient seen. Alert and oriented times 3 Patient came with chest pain CTA of chest -Patient positive for PE Will continue Iv heparin Objective - Constitutional Vitals: Vital Signs - 12hr 07/04/20 05:37 Temperature 98.1 F Pulse Rate 86 Respiratory 20 Rate Blood Pressure 139/91 O2 Sat by Pulse 97 Oximetry General appearance: Present: no acute distress, well-nourished - EENT Eyes: PERRL, EOM intact ENT: hearing intact, clear oral mucosa Ears: bilateral: normal - Neck Neck: supple, normal ROM - Respiratory Respiratory effort: normal Respiratory: bilateral: CTA - Breasts Breasts: normal - Cardiovascular Heart rate: 79 Rhythm: regular Heart Sounds: Present: S1 & S2. Absent: gallop, rub Extremities: pulses intact, No edema, normal color, Full ROM - Gastrointestinal General gastrointestinal: Present: soft, non-tender, non-distended, normal bowel sounds - Genitourinary Male genitourinary: normal - Integumentary Integumentary: clear, warm, dry - Musculoskeletal Musculoskeletal: 1, strength equal bilaterally - Neurologic Neurologic: moves all extremities - Psychiatric Psychiatric: memory intact, appropriate mood/affect, intact judgment & insight - Labs CBC & Chem 7: 07/04/20 05:40 07/04/20 05:40 Labs: Abnormal lab results 07/03/20 07/04/20 07/04/20 Range/Units 14:44 05:40 05:40 RBC 5.35 H (3.65-5.03) M/mm3 MCV 83 L (84-94) fl MCH 27 L (28-32) pg RDW 15.4 H (13.2-15.2) % [place] % (Auto) 9.9 H (0.0-7.3) % [place] # 0.9 H (0.0-0.8) K/mm3 Heparin Anti-Xa Level (0.3-0.7) U.I./ml Potassium 3.4 L (3.6-5.0) mmol/L BUN 6 L (9-20) mg/dL C-Reactive Protein 9.60 H (0.00-1.30) mg/dL 07/04/20 Range/Units 06:00 RBC (3.65-5.03) M/mm3 MCV (84-94) fl MCH (28-32) pg RDW (13.2-15.2) % [place] % (Auto) (0.0-7.3) % [place] # (0.0-0.8) K/mm3 Heparin Anti-Xa Level 0.22 L (0.3-0.7) U.I./ml Potassium (3.6-5.0) mmol/L BUN (9-20) mg/dL C-Reactive Protein (0.00-1.30) mg/dL HEART Score - HEART Score Troponin: Troponin T < 0.010 ng/mL (0.00-0.029) 07/03/20 02:06
[2020-07-04] MEDS ORDERED: PHOS-NAK POWDER PACKET PO ONE (14:31)
--- NOTE | 2020-07-04 14:40 | Progress Note ---
Assessment and Plan A/P: 39-year-old male who came to the emergency room with right-sided chest pain. He had recently traveled to [place]: #Acute pulmonary embolism: provoked from recent travel v/s COVID related. On room air. On anticoagulation. #Leukocytosis: likely reactive to above. Chest x-ray without any acute findings, no evidence of pneumonia Recs: COVID-PCR is positive, may explain the increased risk of VTE Not hypoxic, no role for steroids or Remdesivir continue anticoagulation for PE ID will sign off. Please call if questions. Ricardo Dalton MD, FACP [facility] C: [phone] O: [phone] F: [phone] Subjective Date of service: 07/04/20 Interval history: Low grade fever. Remains on room air. Objective - Exam Narrative Exam: Physical Exam (reviewed in chart due to PPE conservation) Constitutional: limited due to PPE conservation strategy Head, Ears, Nose: limited due to PPE conservation strategy Eyes: limited due to PPE conservation strategy Neck: limited due to PPE conservation strategy Oral: limited due to PPE conservation strategy Cardiovascular: limited due to PPE conservation strategy Respiratory: limited due to PPE conservation strategy GI: limited due to PPE conservation strategy Musculoskeletal: limited due to PPE conservation strategy Skin: limited due to PPE conservation strategy Hem/Lymphatic: limited due to PPE conservation strategy Psych: limited due to PPE conservation strategy Neurological: limited due to PPE conservation strategy - Constitutional Vitals: Vital Signs Temp Pulse Resp BP Pulse Ox 98.0 F 84 19 145/97 96 07/04/20 10:36 07/04/20 10:36 07/04/20 10:36 07/04/20 10:36 07/04/20 10:36 Temperature -Last 24 Hours Temperature 98.0 F Temperature 98.1 F Temperature 100.0 F Temperature 99.3 F - Labs CBC & Chem 7: 07/04/20 05:40 07/04/20 05:40 Labs: Abnormal lab results 07/03/20 07/03/20 07/04/20 Range/Units 14:44 Unknown 05:40 RBC 5.35 H (3.65-5.03) M/mm3 MCV 83 L (84-94) fl MCH 27 L (28-32) pg RDW 15.4 H (13.2-15.2) % [place] % (Auto) 9.9 H (0.0-7.3) % [place] # 0.9 H (0.0-0.8) K/mm3 Heparin Anti-Xa Level (0.3-0.7) U.I./ml Potassium (3.6-5.0) mmol/L BUN (9-20) mg/dL C-Reactive Protein 9.60 H (0.00-1.30) mg/dL Coronavirus (PCR) Positive A (Negative) 07/04/20 07/04/20 07/04/20 Range/Units 05:40 06:00 13:20 RBC (3.65-5.03) M/mm3 MCV (84-94) fl MCH (28-32) pg RDW (13.2-15.2) % [place] % (Auto) (0.0-7.3) % [place] # (0.0-0.8) K/mm3 Heparin Anti-Xa Level 0.22 L 0.23 L (0.3-0.7) U.I./ml Potassium 3.4 L (3.6-5.0) mmol/L BUN 6 L (9-20) mg/dL C-Reactive Protein (0.00-1.30) mg/dL Coronavirus (PCR) (Negative)
[2020-07-04] MEDS: HEPARIN/ 0.45% NACL DRIP 25,000 UNIT/500 ML BAG IV SCH (17:48)
--- NOTE | 2020-07-05 09:02 | Progress Note ---
Assessment and Plan Assessment and Plan Assessment and plan: Pulmonary embolism ? cause-Covid related/recent travel to [place] Covid test done-awaiting result. Cont. on heparin drip. We will transition to eliquis before d/c Pulmonary consulted. Oxygen supplement PRN Abdominal pain. Resolving. CT A/P and Abd US negative. Prrophalasis- Heparin gtt - Patient Problems (1) Hypokalemia Current Visit: Yes Status: Acute Plan to address problem: Replace potassium Am lab, bmp and mag level Replace if needed (2) COVID-19 virus detected Current Visit: Yes Status: Acute Plan to address problem: COVID-PCR is positive, may explain the increased risk of VTE ID culture-follow with recommended Not hypoxic, no role for steroids or Remdesivir continue anticoagulation for PE Objective - Constitutional Vitals: Vital Signs - 12hr 07/04/20 07/04/20 07/05/20 22:36 23:45 05:06 Temperature 98.6 F 98.3 F Pulse Rate 88 79 Respiratory 20 20 Rate Blood Pressure 152/96 140/87 O2 Sat by Pulse 98 96 96 Oximetry General appearance: Present: no acute distress, well-nourished - EENT Eyes: PERRL, EOM intact ENT: hearing intact, clear oral mucosa Ears: bilateral: normal - Neck Neck: supple, normal ROM - Respiratory Respiratory effort: normal Respiratory: bilateral: CTA - Breasts Breasts: normal - Cardiovascular Rhythm: regular Heart Sounds: Present: S1 & S2. Absent: gallop, rub Extremities: pulses intact, No edema, normal color, Full ROM - Gastrointestinal General gastrointestinal: Present: soft, non-tender, non-distended, normal bowel sounds - Genitourinary Male genitourinary: normal - Integumentary Integumentary: clear, warm, dry - Musculoskeletal Musculoskeletal: 1, strength equal bilaterally - Neurologic Neurologic: moves all extremities - Psychiatric Psychiatric: memory intact, appropriate mood/affect, intact judgment & insight - Labs CBC & Chem 7: 07/04/20 05:40 07/04/20 05:40 Labs: Abnormal lab results 07/03/20 07/04/20 07/04/20 Range/Units Unknown 13:20 19:18 Heparin Anti-Xa Level 0.23 L 0.17 L (0.3-0.7) U.I./ml Coronavirus (PCR) Positive A (Negative) HEART Score - HEART Score Troponin: Troponin T < 0.010 ng/mL (0.00-0.029) 07/03/20 02:06
[2020-07-05 10:25] LABS: BUN/Creatinine Ratio 4; Blood Urea Nitrogen 4 mg/dL (9-20); Calcium 9.2 mg/dL (8.4-10.2); Hemolysis Index 6
[2020-07-05 10:26] LABS: C-Reactive Protein 5.5 mg/dL (0.00-1.30)
[2020-07-05] MEDS: HEPARIN/ 0.45% NACL DRIP 25,000 UNIT/500 ML BAG IV SCH (10:34)
--- NOTE | 2020-07-05 11:18 | Discharge Summary ---
Providers - Providers Date of Admission: 07/02/20 23:45 Date of discharge: 07/05/20 Attending physician: PIO MONTGOMERY 07/03/20 00:03 Consult to Physician [CONS] Routine Comment: Consulting Provider: RIVSA BLACK Physician Instructions: Reason For Exam: Cough, R/O PNEUMONIA VS COVID 07/03/20 08:30 Consult to Physician [CONS] Routine Comment: Consulting Provider: CAMERON CANALES Physician Instructions: Reason For Exam: PE 07/05/20 09:09 Consult to Case Management [CONS] Stat Services Needed at Discharge: Other Notified:: case management Phone number called:: [phone] Was contact made?: Yes If yes, spoke with:: general lithographic worker Time called:: 09:00 Comment:: pt needs medication assistance Additional Physician Instructions: medication assistance Eliquis Primary care physician: ROLLOUT MANAGER Hospitalization Reason for admission: chest pain and shortness of breath Condition: Stable Disposition: TO HOME OR SELFCARE - Discharge Diagnoses (1) Hypokalemia Status: Acute Comment: Replace times before d/c. Patient advised to follow up with his PCP for repeat potassium level in 2 to 5 days (2) COVID-19 virus detected Status: Acute Comment: Will d/c patient on eliquis. Patient advised to follow up with PCP 89-year-old male no significant past medical history presenting to the emergency room today complaining of nausea and abdominal pain for the past few days. Abdominal pain is said to be right in the right upper quadrant and radiating towards the back. Abdominal pain is said to be crampy and was about 8/10 in severity. Patient denies any chest pain or shortness of breath, no fever or chills, no headache or dizziness. He denies any bloody stool, no hematuria or dysuria. He has had some cough which has been productive of some blood-tinged sputum. Patient admits that he was in [place] a few weeks ago but denies having any sick contacts or contact with anyone with COVID-19. Core Measure Documentation - Palliative Care Palliative Care/ Comfort Measures: Not Applicable - Core Measures Any of the following diagnoses?: DVT/PE, none - VTE Discharge Requirements Deep Vein Thrombosis/Pulmonary Embolism Present on Admission: No Has pt received <5 days of overlap therapy or INR<2.0: Yes Anticoagulant overlap therapy prescribed at discharge: Yes Exam - Constitutional Vitals: Temp Pulse Resp BP Pulse Ox 98.3 F 79 20 140/87 96 07/05/20 05:06 07/05/20 05:06 07/05/20 05:06 07/05/20 05:06 07/05/20 05:06 General appearance: Present: no acute distress, well-nourished - EENT Eyes: Present: PERRL ENT: hearing intact, clear oral mucosa - Neck Neck: Present: supple, normal ROM - Respiratory Respiratory effort: normal Respiratory: bilateral: CTA - Cardiovascular Heart Sounds: Present: S1 & S2. Absent: rub, click - Extremities Extremities: pulses symmetrical, No edema Peripheral Pulses: within normal limits - Abdominal General gastrointestinal: Present: soft, non-tender, non-distended, normal bowel sounds Male genitourinary: Present: normal - Integumentary Integumentary: Present: clear, warm, dry - Musculoskeletal Musculoskeletal: gait normal, strength equal bilaterally - Psychiatric Psychiatric: appropriate mood/affect, intact judgment & insight - Neurologic Neurologic: CNII-XII intact, moves all extremities Plan Diet: regular Follow up with: PRIMARY CARE,MD [Primary Care Provider] - 3-5 Days Prescriptions: Apixaban [Eliquis] 5 mg PO BID 30 Days #120 tablet Apixaban [Eliquis] 5 mg PO BID 30 Days #120 tablet Apixaban [Eliquis] 10 mg PO BID 7 Days #28 tablet Apixaban [Eliquis] 10 mg PO Q12HR 7 Days #28 tablet Apixaban [Eliquis] 5 mg PO Q12HR 30 Days #60 tablet
[2020-07-05] MEDS ORDERED: APIXABAN 5 MG TAB PO SCH (12:00)
[2020-07-05] MEDS ORDERED: POTASSIUM CHLORIDE ER 20 MEQ TAB PO ONE (12:00)
[2020-07-05 12:09] VITALS: BP 144/101
--- NOTE | 2020-07-05 13:45 | Discharge Summary ---
Providers - Providers Date of Admission: 07/02/20 23:45 Date of discharge: 07/05/20 Attending physician: PIO MONTGOMERY 07/03/20 00:03 Consult to Physician [CONS] Routine Comment: Consulting Provider: RIVAS BLACK Physician Instructions: Reason For Exam: Cough, R/O PNEUMONIA VS COVID 07/03/20 08:30 Consult to Physician [CONS] Routine Comment: Consulting Provider: CAMERON CANALES Physician Instructions: Reason For Exam: PE 07/05/20 09:09 Consult to Case Management [CONS] Stat Services Needed at Discharge: Other Notified:: case management Phone number called:: [phone] Was contact made?: Yes If yes, spoke with:: cement storage worker Time called:: 09:00 Comment:: pt needs medication assistance Additional Physician Instructions: medication assistance Eliquis Primary care physician: TOY PAINTER Hospitalization Condition: Stable Disposition: DC-01 TO HOME OR SELFCARE - Discharge Diagnoses (1) Hypokalemia Status: Acute Comment: Replace times before d/c. Patient advised to follow up with his PCP for repeat potassium level in 2 to 5 days (2) COVID-19 virus detected Status: Acute Comment: Will d/c patient on eliquis. Patient advised to follow up with PCP 89-year-old male no significant past medical history presenting to the emergency room today complaining of nausea and abdominal pain for the past few days. Abdominal pain is said to be right in the right upper quadrant and radiating towards the back. Abdominal pain is said to be crampy and was about 8/10 in severity. Patient denies any chest pain or shortness of breath, no fever or chills, no headache or dizziness. He denies any bloody stool, no hematuria or dysuria. He has had some cough which has been productive of some blood-tinged sputum. Patient admits that he was in [place] a few weeks ago but denies having any sick contacts or contact with anyone with COVID-19. Core Measure Documentation - Palliative Care Palliative Care/ Comfort Measures: Not Applicable Exam - Constitutional Vitals: Temp Pulse Resp BP Pulse Ox 98.7 F 83 15 144/101 97 07/05/20 11:49 07/05/20 11:49 07/05/20 11:49 07/05/20 11:49 07/05/20 11:49 Plan Follow up with: PRIMARY CARE, [Primary Care Provider] - 3-5 Days Prescriptions: Apixaban [Eliquis] 5 mg PO BID 30 Days #120 tablet Apixaban [Eliquis] 5 mg PO BID 30 Days #120 tablet Apixaban [Eliquis] 10 mg PO BID 7 Days #28 tablet Apixaban [Eliquis] 10 mg PO Q12HR 7 Days #28 tablet Apixaban [Eliquis] 5 mg PO Q12HR 30 Days #60 tablet
--- NOTE | 2020-07-05 15:16 | Event Note ---
Date: 07/05/20 Chart reviewed. Patient Covid positive which likely predisposed patient to acute PE. Patient stable hemodynamically on RA. Can go home on oral anticoagulation with Eliquis or Xarelto and treat for 3-6 months. Agree w/ plans to discharge. Patient can return to ED for any worsening symptoms. We will sign off. Please call us with questions.
[2020-07-12] MEDS ORDERED: APIXABAN 5 MG TAB PO SCH (22:00)
== END 2020-07-05 17:35 | disposition home or self-care (01) | DRG 177 ==
LOC: ED 12:55 → 3A 23:45
PROVIDERS: ADMIT Internal Medicine Geriatric Medicine; ATTEND Hospitalist
DX: U07.1 COVID-19 (principal); I26.99 Other pulmonary embolism without acute cor pulmonale; E87.6 Hypokalemia; D72.829 Elevated white blood cell count, unspecified; Z82.49 Family history of ischemic heart disease and other diseases of the circulatory system
CPT/HCPCS: 36415; 71046; 74177; 76700; 80048; 80053; 81001; 82728; 82947; 83615; 83690; 83735; 84145; 84484; 85014; 85018; 85025; 85049; 85379; 85520; 85610; 85730; 86140; 93005; 99406; G0378; J0456; J0696; J1644; J7030; J7050; Q0162; Q9967; U0003-CS